=== PATIENT | female | born 1950 | race Caucasian/White ===

== ENCOUNTER → 2016-10-16 | Outpatient (CLI) | payer MEDICARE, OTHER ==
[~2016-10-16] MED LIST: MULTIPLE VIT 10 ML IV ONE; MVI in SODIUM CHLORIDE 0.9% 1,010 ML ONE; ONDANSETRON HCL 4 MG/2 ML VIAL IV ONE; ONDANSETRON HCL 4 MG/2 ML VIAL ONE; SODIUM CHLORIDE 0.9% 500 ML IVB ONE
[2016-10-16 15:00] VITALS: BP 96/67
== END | disposition home or self-care (01) ==
LOC: Rad HDHVI 12:48
PROVIDERS: ATTEND Internal Medicine Cardiovascular Disease
DX: E86.0 Dehydration (principal); R11.2 Nausea with vomiting, unspecified; K56.69 Other intestinal obstruction
CPT/HCPCS: 74000; 96365; 96366; 96375; G0463; J2405; J3411; J3475; 96360; 96361

== ENCOUNTER → 2016-10-22 | Outpatient (CLI) | payer MEDICARE, OTHER ==
[~2016-10-22] MED LIST changes: +DIPH2.5T73 PO; +DOCU100T15 PO; +GABA250S2 PO; +IBUP800T24 PO; +LANS15CA21 PO; +LETR2.5T6 PO; +LEVO88TA4 PO; +LORA-655 PO; +MAGN500C PO; +METO-281 PO; +OXYB5TAB61 PO; +POTA10TA34 PO; +PRO10T PO; +TELM80TA PO; +VENL150C58 PO; +VENL75CA78 PO; +ZOLP10TA PO
[2016-10-22 11:30] VITALS: BP 131/92
== END | disposition home or self-care (01) ==
LOC: CHF HDHVI 09:04
PROVIDERS: ATTEND Internal Medicine Cardiovascular Disease
DX: I50.9 Heart failure, unspecified (principal); C50.911 Malignant neoplasm of unspecified site of right female breast; R53.83 Other fatigue; R11.10 Vomiting, unspecified; E86.0 Dehydration
CPT/HCPCS: 96365; 96366; 96375; G0463; J2405; J3411; J3475; 96360; 96361; 96374

== ENCOUNTER → 2016-10-24 | Outpatient (CLI) | payer MEDICARE, OTHER ==
[~2016-10-24] MED LIST changes: +CYANOCOBALAMIN (B-12) 1000 MCG/1 ML VIAL ONE; +MAGNESIUM SULF SDV 50% 4MEQ/ML-2 ML VIAL IV ONE; +MAGNESIUM SULFATE 1GM/100ML 100 ML IV ONE; +POTASSIUM CHL 10 Meq TABLET PO ONE; +POTASSIUM CHL 20 Meq TABLET PO ONE; -SODIUM CHLORIDE 0.9% 500 ML IVB ONE
[2016-10-24 14:45] VITALS: BP 119/70
== END | disposition home or self-care (01) ==
LOC: CHF HDHVI 11:34
PROVIDERS: ATTEND Internal Medicine Cardiovascular Disease
DX: I10 Essential (primary) hypertension (principal); C78.6 Secondary malignant neoplasm of retroperitoneum and peritoneum; E63.9 Nutritional deficiency, unspecified; E03.9 Hypothyroidism, unspecified; E87.1 Hypo-osmolality and hyponatremia; R53.83 Other fatigue; R53.1 Weakness
CPT/HCPCS: 96365; 96366; 96372; 96375; G0463; J2405; J3411; J3420; J3475; 96360; 96361

== ENCOUNTER → 2016-11-13 | Outpatient (CLI) | payer MEDICARE, OTHER ==
[~2016-11-13] MED LIST changes: -CYANOCOBALAMIN (B-12) 1000 MCG/1 ML VIAL ONE; -MAGNESIUM SULF SDV 50% 4MEQ/ML-2 ML VIAL IV ONE; -MAGNESIUM SULFATE 1GM/100ML 100 ML IV ONE; -MULTIPLE VIT 10 ML IV ONE; -MVI in SODIUM CHLORIDE 0.9% 1,010 ML ONE; -ONDANSETRON HCL 4 MG/2 ML VIAL IV ONE; -ONDANSETRON HCL 4 MG/2 ML VIAL ONE; -POTASSIUM CHL 10 Meq TABLET PO ONE; -POTASSIUM CHL 20 Meq TABLET PO ONE
[2016-11-13 12:28] LABS: Basophils # (auto) 0 uL; Basophils % (auto) 0.3 % (0.0-2.0); DEFINITIVE Y; Eosinophils # (auto) 0 uL; Eosinophils % (auto) 0.4 % (0.0-7.0); Hematocrit 33.1 % (36.0-46.0); Hemoglobin 10.9 g/dL (12.2-16.2); Lymphocytes # (auto) 1.2 uL; Lymphocytes % (auto) 14.6 % (10.0-50.0); Mean Corpuscular Hemoglobin 29.8 pg (28.0-32.0); Mean Corpuscular Volume 90.2 fL (80.0-100.0); Mean Platelet Volume 7.1 fL (7.4-10.4); Monocytes # (auto) 0.4 uL; Monocytes % (auto) 5.3 % (0.0-12.0); Neutrophils # (auto) 6.6 uL; Neutrophils % (auto) 79.4 % (37.0-80.0); Red Cell Distribution Width 15.6 % (11.6-16.0); White Blood Cell 8.4 10^3/uL (4.4-10.8)
[2016-11-13 12:55] LABS: Albumin 3.3 g/dL (3.4-5.0); Alkaline Phosphatase 81 U/L (45-117); Anion Gap 9 (5-15); Aspartate Aminotransferase 16 U/L (15-37); BUN/Creatinine Ratio 23.5; Bilirubin, Direct < 0.1 mg/dL (0-0.2); Bilirubin, Total 0.2 mg/dL (0.2-1.0); Blood Urea Nitrogen 16 mg/dL (7-18); Calcium 9.3 mg/dL (8.5-10.1); Carbon Dioxide 21 mmol/L (21-32); Chloride 101 mmol/L (98-107); GFR African American 111 mL/min; GFR Non-African American 91 mL/min; Glucose 109 mg/dL (74-106); Potassium 4.7 mmol/L (3.5-5.1); Sodium 131 mmol/L (136-145); Total Protein 7.2 g/dL (6.4-8.2)
[2016-11-13 14:43] LABS: Platelet Count (auto) 889 10^3/uL (140-450); Platelet Estimate Markedly Increased
== END | disposition home or self-care (01) ==
LOC: Rad HDHVI 10:50
PROVIDERS: ATTEND Internal Medicine Cardiovascular Disease
DX: I10 Essential (primary) hypertension (principal); K74.1 Hepatic sclerosis; D64.9 Anemia, unspecified
CPT/HCPCS: 36415; 71020; 80048; 80076; 85025

== ENCOUNTER → 2016-11-19 | Outpatient (CLI) | payer MEDICARE, OTHER ==
[~2016-11-19] MED LIST changes: +CYANOCOBALAMIN (B-12) 1000 MCG/1 ML VIAL IM ONE; +CYANOCOBALAMIN (B-12) 1000 MCG/1 ML VIAL ONE; +MULTIPLE VIT 10 ML IV ONE; +MVI in SODIUM CHLORIDE 0.9% 1,010 ML ONE; +SODIUM CHLORIDE 0.9% 1,000 ML IVB ONE
[2016-11-19 13:30] VITALS: BP 139/72
== END | disposition home or self-care (01) ==
LOC: CHF HDHVI 10:27
PROVIDERS: ATTEND Internal Medicine Cardiovascular Disease
DX: E86.0 Dehydration (principal); C80.1 Malignant (primary) neoplasm, unspecified; D64.9 Anemia, unspecified
CPT/HCPCS: 96365; 96366; 96372; G0463; J1642; J3411; J3420; J3475

== ENCOUNTER → 2016-11-27 | Outpatient (CLI) | payer MEDICARE, OTHER ==
[~2016-11-27] MED LIST changes: -CYANOCOBALAMIN (B-12) 1000 MCG/1 ML VIAL IM ONE; -CYANOCOBALAMIN (B-12) 1000 MCG/1 ML VIAL ONE; -MULTIPLE VIT 10 ML IV ONE; -MVI in SODIUM CHLORIDE 0.9% 1,010 ML ONE; -SODIUM CHLORIDE 0.9% 1,000 ML IVB ONE
[2016-11-27 10:00] VITALS: BP 147/78
[2016-11-27 10:20] VITALS: BP 134/73
== END | disposition home or self-care (01) ==
LOC: CHF HDHVI 10:05
PROVIDERS: ATTEND Internal Medicine Cardiovascular Disease
DX: C76.2 Malignant neoplasm of abdomen (principal); D64.9 Anemia, unspecified; R53.83 Other fatigue
CPT/HCPCS: G0463

== ENCOUNTER → 2017-06-06 | Outpatient (CLI) | payer MEDICARE, OTHER ==
[~2017-06-06] MED LIST changes: +CYANOCOBALAMIN (B-12) 1000 MCG/1 ML VIAL ONE; +KETOROLAC TROMETH 60MG/2ML VIAL IM ONE; +MVI in SODIUM CHLORIDE 0.9% 1,010 ML ONE; +ONDANSETRON HCL 4 MG/2 ML VIAL ONE
[2017-06-06 12:33] LABS: Platelet Count (auto) 221 10^3/uL (140-450)
[2017-06-06 12:36] LABS: Hematocrit 40.4 % (36.0-46.0); Hemoglobin 13.4 g/dL (12.2-16.2); Mean Corpuscular Hemoglobin 33.6 pg (28.0-32.0); Mean Corpuscular Hgb Conc. 33.2 g/dL (32.0-36.0); Mean Corpuscular Volume 100.9 fL (80.0-100.0); Red Cell Distribution Width 13.5 % (11.8-14.3); White Blood Cell 11.5 10^3/uL (4.4-10.8)
[2017-06-06 12:59] LABS: BUN/Creatinine Ratio 26.5; Calcium 9.2 mg/dL (8.5-10.1); Magnesium 2.2 mg/dL (1.6-2.6); Potassium 3.8 mmol/L (3.5-5.1)
[2017-06-06 13:04] LABS: Basophils % (manual) 0 (0.0-2.0); Blast Cells 0; Metamyelocytes % 0; Myelocytes % 0; Promyelocytes % 0; Reactive Lymphocytes 0
[2017-06-06 14:21] LABS: Band Neutrophils % (manual) 31; Eosinophils % (manual) 2 (0-7); Lymphocytes % (manual) 7 (10.0-50.0); Monocytes % (manual) 5 (0-12)
[2017-06-06 15:15] VITALS: BP 122/72
== END | disposition home or self-care (01) ==
LOC: CHF HDHVI 11:13
PROVIDERS: ATTEND Internal Medicine Cardiovascular Disease
DX: E83.42 Hypomagnesemia (principal); I10 Essential (primary) hypertension; D64.9 Anemia, unspecified; K21.9 Gastro-esophageal reflux disease without esophagitis; C18.9 Malignant neoplasm of colon, unspecified; R07.9 Chest pain, unspecified
CPT/HCPCS: 36415; 80048; 83735; 85007; 85027; 96365; 96366; 96372; 96374; 96375; G0463; J1885; J2405

== ENCOUNTER → 2017-06-09 | Outpatient (CLI) | payer MEDICARE, OTHER ==
[~2017-06-09] MED LIST changes: -CYANOCOBALAMIN (B-12) 1000 MCG/1 ML VIAL ONE; -KETOROLAC TROMETH 60MG/2ML VIAL IM ONE; +MVI in SODIUM CHLORIDE 0.9% 1,000 ML IVB ONE; +ONDANSETRON HCL 4 MG/2 ML VIAL IV ONE; +PROMETHAZINE HCL 25 MG/ML 1ML IM ONE; +PROMETHAZINE HCL 25 MG/ML 1ML IV ONE; +PROMETHAZINE HCL 25 MG/ML 1ML ONE
[2017-06-09 13:35] VITALS: BP 130/73
[2017-06-09 16:18] LABS: Basophils # (auto) 0 uL; Basophils % (auto) 0.4 % (0.0-2.0); Eosinophils # (auto) 0.1 uL; Hemoglobin 12.6 g/dL (12.2-16.2); Neutrophils # (auto) 4.6 uL; Nucleated Red Blood Cells % 0.1 %
[2017-06-09 16:21] LABS: Eosinophils % (auto) 1.8 % (0.0-7.0); Hematocrit 37.6 % (36.0-46.0); Lymphocytes # (auto) 0.8 uL; Lymphocytes % (auto) 11.9 % (10.0-50.0); Mean Corpuscular Hemoglobin 33.5 pg (28.0-32.0); Mean Corpuscular Hgb Conc. 33.5 g/dL (32.0-36.0); Mean Corpuscular Volume 100.2 fL (80.0-100.0); Monocytes % (auto) 14.8 % (0.0-12.0); Neutrophils % (auto) 71.1 % (37.0-80.0); Platelet Count (auto) 301 10^3/uL (140-450); Red Blood Cells 3.76 10^6/uL (4.0-5.20); Red Cell Distribution Width 12.9 % (11.8-14.3); White Blood Cell 6.4 10^3/uL (4.4-10.8)
[2017-06-09 16:37] LABS: Potassium 3.8 mmol/L (3.5-5.1)
[2017-06-09 17:00] VITALS: BP 150/77
== END | disposition home or self-care (01) ==
LOC: CHF HDHVI 13:12
PROVIDERS: ATTEND Internal Medicine Cardiovascular Disease
DX: E87.5 Hyperkalemia (principal); E86.0 Dehydration; C20 Malignant neoplasm of rectum; R94.4 Abnormal results of kidney function studies; D64.9 Anemia, unspecified
CPT/HCPCS: 36415; 82565; 84132; 84295; 84520; 85025; 96365; 96366; 96372; 96375; G0463; J2405; J2550; J3411; J3475; 96374

== ENCOUNTER → 2017-06-30 | Outpatient (CLI) | payer MEDICARE, OTHER ==
[~2017-06-30] MED LIST changes: -PROMETHAZINE HCL 25 MG/ML 1ML IM ONE
[2017-06-30 16:10] VITALS: BP 139/76
[2017-06-30 16:27] LABS: Basophils # (auto) 0 uL; Basophils % (auto) 0.4 % (0.0-2.0); Eosinophils # (auto) 0.2 uL; Eosinophils % (auto) 1.6 % (0.0-7.0); Hematocrit 40.3 % (36.0-46.0); Hemoglobin 13.9 g/dL (12.2-16.2); Lymphocytes % (auto) 10.2 % (10.0-50.0); Mean Corpuscular Hemoglobin 33.5 pg (28.0-32.0); Mean Corpuscular Hgb Conc. 34.6 g/dL (32.0-36.0); Monocytes # (auto) 0.6 uL; Monocytes % (auto) 6.1 % (0.0-12.0); Neutrophils # (auto) 8.1 uL; Neutrophils % (auto) 81.7 % (37.0-80.0); Nucleated Red Blood Cells % 0.1 %; Platelet Count (auto) 325 10^3/uL (140-450); Red Blood Cells 4.16 10^6/uL (4.0-5.20); Red Cell Distribution Width 12.7 % (11.8-14.3); White Blood Cell 9.9 10^3/uL (4.4-10.8)
[2017-06-30 16:43] LABS: BUN/Creatinine Ratio 15.7; Calcium 9.6 mg/dL (8.5-10.1); Potassium 4.1 mmol/L (3.5-5.1)
== END | disposition home or self-care (01) ==
LOC: CHF HDHVI 12:34
PROVIDERS: ATTEND Internal Medicine Cardiovascular Disease
DX: E83.42 Hypomagnesemia (principal); I10 Essential (primary) hypertension; D64.9 Anemia, unspecified; E55.9 Vitamin D deficiency, unspecified; C50.919 Malignant neoplasm of unspecified site of unspecified female breast; E86.0 Dehydration
CPT/HCPCS: 36415; 80048; 82306; 83735; 85025; 96365; 96366; 96375; G0463; J2405; J2550; J3411; J3475

== ENCOUNTER → 2018-02-09 | Outpatient (CLI) | payer MEDICARE, BC ==
[~2018-02-09] MED LIST changes: -ONDANSETRON HCL 4 MG/2 ML VIAL IV ONE; -ONDANSETRON HCL 4 MG/2 ML VIAL ONE; -POTA10TA34 PO; +POTA1TAB61 PO; +PROMETHAZINE HCL 25 MG/ML 1ML IM ONE
[2018-02-09 13:07] LABS: Basophils # (auto) 0 uL; Basophils % (auto) 0.4 % (0.0-2.0); Eosinophils # (auto) 0 uL; Eosinophils % (auto) 0.5 % (0.0-7.0); Hematocrit 38.4 % (36.0-46.0); Mean Corpuscular Hgb Conc. 33.9 g/dL (32.0-36.0); Mean Corpuscular Volume 91.7 fL (80.0-100.0); Monocytes # (auto) 0.5 uL; Monocytes % (auto) 7.6 % (0.0-12.0); Neutrophils # (auto) 5.2 uL; Neutrophils % (auto) 76.5 % (37.0-80.0); Nucleated Red Blood Cells % 0.1 %; Platelet Count (auto) 277 10^3/uL (140-450); Red Blood Cells 4.19 10^6/uL (4.0-5.20); Red Cell Distribution Width 17.7 % (11.8-14.3); White Blood Cell 6.8 10^3/uL (4.4-10.8)
[2018-02-09 13:18] LABS: Calcium 9.3 mg/dL (8.5-10.1); Magnesium 2.2 mg/dL (1.6-2.6); Potassium 3.4 mmol/L (3.5-5.1)
[2018-02-09 16:10] VITALS: BP 158/88
== END | disposition home or self-care (01) ==
LOC: CHF HDHVI 11:54
PROVIDERS: ATTEND Internal Medicine Cardiovascular Disease
DX: C76.2 Malignant neoplasm of abdomen (principal); C79.89 Secondary malignant neoplasm of other specified sites; E86.0 Dehydration; R11.2 Nausea with vomiting, unspecified; R53.1 Weakness; I10 Essential (primary) hypertension
CPT/HCPCS: 36415; 80048; 82962; 83735; 85025; 96365; 96366; 96372; 96375; G0463; J1642; J2550; J3411; J3475

== ENCOUNTER → 2018-02-12 | Outpatient (CLI) | payer MEDICARE, BC ==
[~2018-02-12] VITALS: Ht 165.1 cm; Wt 59.0 kg
[2018-02-12 16:15] VITALS: BP 167/82
== END | disposition home or self-care (01) ==
LOC: CHF HDHVI 11:25
PROVIDERS: ATTEND Internal Medicine Cardiovascular Disease
DX: C18.9 Malignant neoplasm of colon, unspecified (principal); R53.81 Other malaise; R53.83 Other fatigue; N39.0 Urinary tract infection, site not specified; E87.6 Hypokalemia; E86.9 Volume depletion, unspecified; D64.9 Anemia, unspecified; I10 Essential (primary) hypertension; I25.10 Atherosclerotic heart disease of native coronary artery without angina pectoris; K21.9 Gastro-esophageal reflux disease without esophagitis; E78.5 Hyperlipidemia, unspecified; Z87.891 Personal history of nicotine dependence; Z79.899 Other long term (current) drug therapy
CPT/HCPCS: 96365; 96366; 96372; 96375; G0463; J1642; J2550; J3411; J3475

== ENCOUNTER 2018-02-18 15:26 | Inpatient (IN) | payer MEDICARE, OTHER ==
[~2018-02-18] VITALS: Ht 165.1 cm; Wt 60.8 kg
[~2018-02-18 15:26] MED LIST changes: -MVI in SODIUM CHLORIDE 0.9% 1,000 ML IVB ONE; -MVI in SODIUM CHLORIDE 0.9% 1,010 ML ONE; -PROMETHAZINE HCL 25 MG/ML 1ML IM ONE; -PROMETHAZINE HCL 25 MG/ML 1ML IV ONE; -PROMETHAZINE HCL 25 MG/ML 1ML ONE
[2018-02-18] MEDS ORDERED: D5W/SOD CHL 0.45% 1,000 ML IV SCH (17:30)
[2018-02-18] MEDS ORDERED: PROMETHAZINE HCL 25 MG/ML 1ML IV PRN (17:30)
[2018-02-18] MEDS ORDERED: TPN PER PHARMACY 0 ML IV SCH (17:30)
[2018-02-18 19:39] LABS: Magnesium 2.1 mg/dL (1.6-2.6); Phosphorus 2.4 mg/dL (2.5-4.90)
[2018-02-18] MEDS: MORPHINE SULFATE 10 MG/5 ML ORAL SOLN PO PRN (20:33)
[2018-02-18 22:00] VITALS: BP 145/80
[2018-02-18] MEDS ORDERED: AMINO ACID INFUSION IN D10W 1,000 ML IV NR (22:00)
[2018-02-18] MEDS ORDERED: PROCHLORPERAZINE EDISYLATE 5 MG/ML 2ML VIAL IV ONE (22:00)
[2018-02-18] MEDS ORDERED: DEXTROSE (50%) 50ML SYRG IV SCH (22:15)
[2018-02-18] MEDS: D5W/SOD CHL 0.45% 1,000 ML IV SCH (23:00)
[2018-02-18] MEDS: LORazepam 0.5 MG TAB PO PRN (23:13)
[2018-02-18] MEDS: POTASSIUM CHL 10 Meq TABLET PO SCH (23:41)
[2018-02-18] MEDS: POTASSIUM CHL 20MEQ/100ML 100 ML IV SCH (23:53)
[2018-02-18] MEDS: LORazepam 0.5 MG TAB PO SCH (23:58)
[2018-02-19] MEDS: ACCU-CHEK COMFORT CURVE STRIP VI SCH ×5 (01:30→23:49)
[2018-02-19] MEDS: InsuLIN REG 1unit/0.01ml Soln (100units/ml) SC SCH ×5 (01:30→23:49)
[2018-02-19] MEDS: POTASSIUM CHL 20MEQ/100ML 100 ML IV SCH ×4 (01:40→13:50)
[2018-02-19 05:15] VITALS: BP 151/72
[2018-02-19] MEDS: MORPHINE SULFATE 10 MG/5 ML ORAL SOLN PO PRN ×3 (06:20→23:47)
[2018-02-19 06:30] LABS: Albumin 2.3 g/dL (3.4-5.0); BUN/Creatinine Ratio 43.1; Bilirubin, Total 0.6 mg/dL (0.2-1.0); Calcium 8.1 mg/dL (8.5-10.1); Magnesium 2.1 mg/dL (1.6-2.6); Phosphorus 3.1 mg/dL (2.5-4.90); Total Protein 6.3 g/dL (6.4-8.2)
[2018-02-19 08:00] VITALS: BP 128/75
[2018-02-19 09:00] VITALS: BP 128/75
[2018-02-19] MEDS: POTASSIUM CHL 10 Meq TABLET PO SCH ×3 (09:12→21:59)
[2018-02-19] MEDS: LORazepam 2MG/ML-1ML VIAL IV PRN ×2 (09:13→09:26)
[2018-02-19] MEDS: D5W/SOD CHL 0.45% 1,000 ML IV SCH ×2 (12:21→23:49)
[2018-02-19 13:00] VITALS: BP 130/72
[2018-02-19] MEDS ORDERED: METOCLOPRAMIDE HCL 5MG/ml INJ 2ml VIAL IV PRN (14:00)
[2018-02-19] MEDS ORDERED: METOCLOPRAMIDE HCL 5MG/ml INJ 2ml VIAL IV SCH (14:00)
[2018-02-19 17:00] VITALS: BP 133/75
[2018-02-19] MEDS: PROCHLORPERAZINE EDISYLATE 5 MG/ML 2ML VIAL IV PRN (18:44)
[2018-02-19] MEDS: FAMOTIDINE (10MG/ML) 2ML VL IV SCH (18:44)
[2018-02-19] MEDS ORDERED: TPN PER PHARMACY IV NR ×16 (20:00)
[2018-02-19] MEDS: LORazepam 0.5 MG TAB PO SCH (21:59)
[2018-02-19 22:00] VITALS: BP 126/78
[2018-02-20] MEDS: PROCHLORPERAZINE EDISYLATE 5 MG/ML 2ML VIAL IV PRN ×4 (03:54→20:27)
[2018-02-20 05:00] VITALS: BP 132/69
[2018-02-20] MEDS: InsuLIN REG 1unit/0.01ml Soln (100units/ml) SC SCH ×4 (06:00→23:49)
[2018-02-20] MEDS: ACCU-CHEK COMFORT CURVE STRIP VI SCH ×4 (06:00→23:49)
[2018-02-20] MEDS: MORPHINE SULFATE 10 MG/5 ML ORAL SOLN PO PRN ×3 (06:12→21:28)
[2018-02-20] MEDS: LEVOTHYROXINE SODIUM 88 MCG TAB PO SCH (06:14)
[2018-02-20 07:27] LABS: Albumin 2.3 g/dL (3.4-5.0); BUN/Creatinine Ratio 26.7; Bilirubin, Total 0.5 mg/dL (0.2-1.0); Calcium 8.4 mg/dL (8.5-10.1); Total Protein 6.5 g/dL (6.4-8.2)
[2018-02-20 07:28] LABS: Phosphorus 3.8 mg/dL (2.5-4.90)
[2018-02-20 07:42] LABS: Potassium 2.7 mmol/L (3.5-5.1)
[2018-02-20] MEDS: POTASSIUM CHL 20MEQ/100ML 100 ML IV SCH ×6 (09:15→19:15)
[2018-02-20] MEDS: D5W/SOD CHL 0.45% 1,000 ML IV SCH (09:30)
[2018-02-20 09:50] VITALS: BP 133/72
[2018-02-20] MEDS: POTASSIUM CHL 10 Meq TABLET PO SCH ×2 (10:00→21:30)
[2018-02-20] MEDS: FAMOTIDINE (10MG/ML) 2ML VL IV SCH ×2 (10:14→21:30)
[2018-02-20 12:37] VITALS: BP 117/75
[2018-02-20 13:00] VITALS: BP 129/74
[2018-02-20 16:36] VITALS: BP 119/75
[2018-02-20] MEDS ORDERED: fentaNYL 100MCG/HR 100 MCG/HR PAT TD SCH (17:00)
[2018-02-20] MEDS: LORazepam 2MG/ML-1ML VIAL IV PRN (19:16)
[2018-02-20] MEDS ORDERED: TPN PER PHARMACY IV NR ×9 (20:00)
[2018-02-20 22:00] VITALS: BP 127/72
[2018-02-20] MEDS: LORazepam 0.5 MG TAB PO PRN (23:18)
[2018-02-21] MEDS: PROCHLORPERAZINE EDISYLATE 5 MG/ML 2ML VIAL IV PRN ×4 (00:45→20:30)
[2018-02-21] MEDS: D5W/SOD CHL 0.45% 1,000 ML IV SCH ×2 (01:57→18:12)
[2018-02-21] MEDS: MORPHINE SULFATE 10 MG/5 ML ORAL SOLN PO PRN ×5 (03:41→22:27)
[2018-02-21 05:01] VITALS: BP 123/83
[2018-02-21] MEDS: ACCU-CHEK COMFORT CURVE STRIP VI SCH ×3 (06:17→18:11)
[2018-02-21] MEDS: InsuLIN REG 1unit/0.01ml Soln (100units/ml) SC SCH ×3 (06:17→18:00)
[2018-02-21] MEDS: LEVOTHYROXINE SODIUM 88 MCG TAB PO SCH (06:18)
[2018-02-21 06:39] LABS: Albumin 2.3 g/dL (3.4-5.0); BUN/Creatinine Ratio 19.3; Bilirubin, Total 0.4 mg/dL (0.2-1.0); Calcium 8.7 mg/dL (8.5-10.1); Magnesium 2.6 mg/dL (1.6-2.6); Phosphorus 3.3 mg/dL (2.5-4.90); Potassium 3.6 mmol/L (3.5-5.1); Pre Albumin 34.7 mg/dL (20.0-40.0); Total Protein 6.7 g/dL (6.4-8.2)
[2018-02-21 09:00] VITALS: BP 113/78
[2018-02-21] MEDS: LORazepam 2MG/ML-1ML VIAL IV PRN ×2 (09:16→15:09)
[2018-02-21] MEDS: FAMOTIDINE (10MG/ML) 2ML VL IV SCH ×2 (09:53→21:47)
[2018-02-21] MEDS: POTASSIUM CHL 10 Meq TABLET PO SCH ×2 (09:53→21:47)
[2018-02-21 17:00] VITALS: BP 135/80
[2018-02-21] MEDS ORDERED: TPN PER PHARMACY IV NR ×8 (20:00)
[2018-02-21 21:49] VITALS: BP 136/85
[2018-02-22] MEDS: PROCHLORPERAZINE EDISYLATE 5 MG/ML 2ML VIAL IV PRN ×3 (02:00→20:47)
[2018-02-22] MEDS: MORPHINE SULFATE 10 MG/5 ML ORAL SOLN PO PRN ×6 (03:30→23:26)
[2018-02-22 05:46] VITALS: BP 144/77
[2018-02-22] MEDS: ACCU-CHEK COMFORT CURVE STRIP VI SCH ×5 (06:00→23:28)
[2018-02-22] MEDS: InsuLIN REG 1unit/0.01ml Soln (100units/ml) SC SCH ×5 (06:00→23:27)
[2018-02-22] MEDS: LEVOTHYROXINE SODIUM 88 MCG TAB PO SCH (06:17)
[2018-02-22 07:35] LABS: Bilirubin, Total 0.4 mg/dL (0.2-1.0); Calcium 8.4 mg/dL (8.5-10.1); Magnesium 2.2 mg/dL (1.6-2.6); Phosphorus 3.3 mg/dL (2.5-4.90); Potassium 3.3 mmol/L (3.5-5.1); Total Protein 6.3 g/dL (6.4-8.2)
[2018-02-22] MEDS: POTASSIUM CHL 10 Meq TABLET PO SCH (08:59)
[2018-02-22 09:00] VITALS: BP 139/74
[2018-02-22] MEDS: FAMOTIDINE (10MG/ML) 2ML VL IV SCH ×2 (09:01→20:48)
[2018-02-22] MEDS ORDERED: POTASSIUM CHL 20MEQ/100ML 100 ML IV ONE (09:45)
[2018-02-22] MEDS: D5W/SOD CHL 0.45% 1,000 ML IV SCH (11:42)
[2018-02-22 13:00] VITALS: BP 103/71
[2018-02-22] MEDS: LORazepam 2MG/ML-1ML VIAL IV PRN (14:08)
[2018-02-22 17:00] VITALS: BP 121/69
[2018-02-22] MEDS ORDERED: TPN PER PHARMACY IV NR ×20 (20:00)
[2018-02-22] MEDS: LORazepam 0.5 MG TAB PO PRN (21:14)
[2018-02-22 22:00] VITALS: BP 129/70
[2018-02-23] MEDS: PROCHLORPERAZINE EDISYLATE 5 MG/ML 2ML VIAL IV PRN ×3 (02:28→12:43)
[2018-02-23] MEDS: MORPHINE SULFATE 10 MG/5 ML ORAL SOLN PO PRN ×3 (03:55→14:45)
[2018-02-23] MEDS: LORazepam 2MG/ML-1ML VIAL IV PRN ×2 (04:06→12:22)
[2018-02-23] MEDS: InsuLIN REG 1unit/0.01ml Soln (100units/ml) SC SCH ×3 (04:48→18:00)
[2018-02-23] MEDS: ACCU-CHEK COMFORT CURVE STRIP VI SCH ×3 (04:49→18:00)
[2018-02-23 05:18] VITALS: BP 105/65
[2018-02-23] MEDS: D5W/SOD CHL 0.45% 1,000 ML IV SCH (06:43)
[2018-02-23] MEDS: LEVOTHYROXINE SODIUM 88 MCG TAB PO SCH (06:44)
[2018-02-23 07:30] LABS: Albumin 2.2 g/dL (3.4-5.0); BUN/Creatinine Ratio 20.2; Bilirubin, Total 0.6 mg/dL (0.2-1.0); Calcium 8.6 mg/dL (8.5-10.1); Magnesium 2.3 mg/dL (1.6-2.6); Phosphorus 3.3 mg/dL (2.5-4.90); Potassium 3.4 mmol/L (3.5-5.1); Total Protein 6.6 g/dL (6.4-8.2)
[2018-02-23] MEDS: FAMOTIDINE (10MG/ML) 2ML VL IV SCH (08:43)
[2018-02-23 09:00] VITALS: BP 115/62
[2018-02-23] MEDS ORDERED: POTASSIUM CHL 20MEQ/100ML 100 ML IV ONE (10:30)
[2018-02-23 13:00] VITALS: BP 122/82
[2018-02-23 16:19] VITALS: BP 122/82
[2018-02-23 17:12] VITALS: BP 138/72
[2018-02-23] MEDS ORDERED: [UNRECOGNIZED DRUG - OTHER] IV NR ×10 (20:00)
[2018-02-23] MEDS ORDERED: SODIUM PHOSPHATES IV NR ×10 (20:00)
[2018-02-23] MEDS ORDERED: SODIUM CHLORIDE IV NR ×10 (20:00)
[2018-02-23] MEDS ORDERED: FAT EMULSION IV NR ×10 (20:00)
== END 2018-02-23 18:17 | disposition hospice, home (50) | DRG 640 ==
LOC: TELE-WESTW 16:43
PROVIDERS: ADMIT Internal Medicine Cardiovascular Disease; ATTEND Internal Medicine Cardiovascular Disease
PROC: 02HV33Z Insertion of Infusion Device into Superior Vena Cava, Percutaneous Approach (ICD-10-PCS; principal; 2018-02-18)
DX: E87.0 Hyperosmolality and hypernatremia (principal); E43 Unspecified severe protein-calorie malnutrition; C56.9 Malignant neoplasm of unspecified ovary; R64 Cachexia; E87.6 Hypokalemia; E86.9 Volume depletion, unspecified; K21.9 Gastro-esophageal reflux disease without esophagitis; I10 Essential (primary) hypertension; E78.5 Hyperlipidemia, unspecified; I25.10 Atherosclerotic heart disease of native coronary artery without angina pectoris; Z51.5 Encounter for palliative care; Z87.891 Personal history of nicotine dependence; Z68.22 Body mass index [BMI] 22.0-22.9, adult; Z79.899 Other long term (current) drug therapy
CPT/HCPCS: 36415; 71045; 80053; 82040; 82962; 83735; 83935; 84100; 84478; 85025; 96365; 96366; 96367; 96372; 96375; G0463; J1642; J1815; J3480; J3490; J7131

== ENCOUNTER → 2018-02-25 | Outpatient (CLI) | payer MEDICARE, BC ==
[~2018-02-25] MED LIST changes: -DIPH2.5T73 PO; -DOCU100T15 PO; -GABA250S2 PO; -IBUP800T24 PO; -LANS15CA21 PO; -LETR2.5T6 PO; -MAGN500C PO; -METO-281 PO; -OXYB5TAB61 PO; -POTA1TAB61 PO; -PRO10T PO; +PROMETHAZINE HCL 25 MG/ML 1ML IM ONE; +PROMETHAZINE HCL 25 MG/ML 1ML IV ONE; +PROMETHAZINE HCL 25 MG/ML 1ML ONE; -TELM80TA PO; -VENL150C58 PO; -VENL75CA78 PO; -ZOLP10TA PO
[2018-02-25 13:10] VITALS: BP 131/78
[2018-02-25 15:20] VITALS: BP 128/82
== END | disposition home or self-care (01) ==
LOC: CHF HDHVI 13:16
PROVIDERS: ATTEND Internal Medicine Cardiovascular Disease
DX: C56.9 Malignant neoplasm of unspecified ovary (principal); C79.9 Secondary malignant neoplasm of unspecified site; R11.2 Nausea with vomiting, unspecified; I10 Essential (primary) hypertension; I25.10 Atherosclerotic heart disease of native coronary artery without angina pectoris; K21.9 Gastro-esophageal reflux disease without esophagitis; E78.5 Hyperlipidemia, unspecified; Z68.22 Body mass index [BMI] 22.0-22.9, adult; Z87.891 Personal history of nicotine dependence
CPT/HCPCS: 96372; 96374; G0463; J1642; J2550

== ENCOUNTER 2018-03-12 17:50 | Inpatient (IN) | payer MEDICARE, OTHER ==
[~2018-03-12] VITALS: Ht 165.1 cm; Wt 59.4 kg
[~2018-03-12 17:50] MED LIST changes: -PROMETHAZINE HCL 25 MG/ML 1ML IM ONE; -PROMETHAZINE HCL 25 MG/ML 1ML IV ONE; -PROMETHAZINE HCL 25 MG/ML 1ML ONE
[2018-03-12] MEDS ORDERED: SODIUM CHLORIDE 0.9% 1,000 ML IV SCH ×2 (18:45→20:00)
[2018-03-12] MEDS ORDERED: TPN PER PHARMACY 0 ML IV SCH (18:45)
[2018-03-12] MEDS: POTASSIUM CHL 20MEQ/100ML 100 ML IV SCH ×3 (18:45→22:55)
[2018-03-12 20:00] VITALS: BP 114/65
[2018-03-12] MEDS ORDERED: NITROGLYCERIN 0.4 MG SL TAB SL PRN (20:00)
[2018-03-12] MEDS ORDERED: MORPHINE SULFATE 4 MG/ML SYR/VIAL IV PRN (20:00)
[2018-03-12] MEDS ORDERED: AMINO ACID INFUSION IN D10W 1,000 ML IV NR (21:30)
[2018-03-12] MEDS ORDERED: DEXTROSE (50%) 50ML SYRG IV SCH (21:30)
[2018-03-12 21:40] VITALS: BP 116/73
[2018-03-12] MEDS: FAMOTIDINE (10MG/ML) 2ML VL IV SCH (21:41)
[2018-03-12] MEDS: PROCHLORPERAZINE EDISYLATE 5 MG/ML 2ML VIAL IV PRN (22:12)
[2018-03-12] MEDS: SODIUM CHLORIDE 0.9% 1,000 ML IV SCH (22:30)
[2018-03-12] MEDS: InsuLIN REG 1unit/0.01ml Soln (100units/ml) SC SCH (23:54)
[2018-03-12] MEDS: ACCU-CHEK COMFORT CURVE STRIP VI SCH (23:54)
[2018-03-13] MEDS: POTASSIUM CHL 20MEQ/100ML 100 ML IV SCH ×3 (01:12→12:25)
[2018-03-13] MEDS: LORazepam 2MG/ML-1ML VIAL IV PRN ×3 (03:57→21:46)
[2018-03-13 05:28] VITALS: BP 111/59
[2018-03-13] MEDS: InsuLIN REG 1unit/0.01ml Soln (100units/ml) SC SCH ×3 (06:00→18:00)
[2018-03-13] MEDS: ACCU-CHEK COMFORT CURVE STRIP VI SCH ×3 (06:20→18:25)
[2018-03-13 06:32] LABS: Basophils # (auto) 0 uL; Basophils % (auto) 0.7 % (0.0-2.0); Eosinophils # (auto) 0 uL; Eosinophils % (auto) 0.8 % (0.0-7.0); Hematocrit 34.1 % (36.0-46.0); Hemoglobin 11.5 g/dL (12.2-16.2); Lymphocytes # (auto) 1.4 uL; Lymphocytes % (auto) 25.2 % (10.0-50.0); Mean Corpuscular Hemoglobin 30.1 pg (28.0-32.0); Mean Corpuscular Hgb Conc. 33.7 g/dL (32.0-36.0); Mean Corpuscular Volume 89.1 fL (80.0-100.0); Monocytes # (auto) 0.6 uL; Neutrophils # (auto) 3.5 uL; Neutrophils % (auto) 62.3 % (37.0-80.0); Nucleated Red Blood Cells % 0.1 %; Platelet Count (auto) 289 10^3/uL (140-450); Red Blood Cells 3.83 10^6/uL (4.0-5.20); Red Cell Distribution Width 15.9 % (11.8-14.3); White Blood Cell 5.6 10^3/uL (4.4-10.8)
[2018-03-13 06:53] LABS: Albumin 2.1 g/dL (3.4-5.0); BUN/Creatinine Ratio 46.3; Potassium 3.1 mmol/L (3.5-5.1)
[2018-03-13 06:54] LABS: Magnesium 2.2 mg/dL (1.6-2.6)
[2018-03-13 06:55] LABS: Bilirubin, Total 0.5 mg/dL (0.2-1.0); Total Protein 6.4 g/dL (6.4-8.2)
[2018-03-13 06:57] LABS: Phosphorus 4.5 mg/dL (2.5-4.90)
[2018-03-13 08:26] LABS: Pre Albumin 31.5 mg/dL (20.0-40.0)
[2018-03-13] MEDS: PROCHLORPERAZINE EDISYLATE 5 MG/ML 2ML VIAL IV PRN ×2 (08:36→19:50)
[2018-03-13 08:38] VITALS: BP 123/69
[2018-03-13] MEDS: FAMOTIDINE (10MG/ML) 2ML VL IV SCH ×2 (09:33→21:28)
[2018-03-13 12:24] VITALS: BP 118/66
[2018-03-13] MEDS: SODIUM CHLORIDE 0.9% 1,000 ML IV SCH (15:10)
[2018-03-13 16:45] VITALS: BP 126/78
[2018-03-13] MEDS ORDERED: TPN PER PHARMACY IV NR ×7 (20:00)
[2018-03-13 22:17] VITALS: BP 121/67
[2018-03-14 05:00] VITALS: BP 127/64
[2018-03-14] MEDS: InsuLIN REG 1unit/0.01ml Soln (100units/ml) SC SCH ×5 (06:00→23:21)
[2018-03-14 06:19] LABS: Albumin 2.2 g/dL (3.4-5.0); BUN/Creatinine Ratio 36.1; Calcium 8.1 mg/dL (8.5-10.1); Magnesium 2.1 mg/dL (1.6-2.6)
[2018-03-14] MEDS: ACCU-CHEK COMFORT CURVE STRIP VI SCH ×4 (06:22→17:34)
[2018-03-14 06:27] LABS: Bilirubin, Total 0.5 mg/dL (0.2-1.0); Phosphorus 2.5 mg/dL (2.5-4.90); Total Protein 6.4 g/dL (6.4-8.2)
[2018-03-14 06:40] LABS: Potassium 2.9 mmol/L (3.5-5.1)
[2018-03-14] MEDS: SODIUM CHLORIDE 0.9% 1,000 ML IV SCH ×2 (07:50→12:19)
[2018-03-14 09:00] VITALS: BP 122/69
[2018-03-14] MEDS: LORazepam 2MG/ML-1ML VIAL IV PRN ×2 (09:18→20:30)
[2018-03-14] MEDS: FAMOTIDINE (10MG/ML) 2ML VL IV SCH ×2 (09:19→22:50)
[2018-03-14] MEDS ORDERED: HYDROmorphone HCL 2 MG/ML VL IV PRN (10:00)
[2018-03-14] MEDS: POTASSIUM CHL 20MEQ/100ML 100 ML IV SCH ×3 (10:10→14:22)
[2018-03-14 13:00] VITALS: BP 130/73
[2018-03-14] MEDS ORDERED: diphenhdrAMINE HCL 50 MG/1 ML VL IV PRN (14:15)
[2018-03-14] MEDS ORDERED: diphenhdrAMINE HCL 25 MG CAP PO PRN (14:30)
[2018-03-14 17:00] VITALS: BP 122/67
[2018-03-14] MEDS ORDERED: TPN PER PHARMACY IV NR ×9 (20:00)
[2018-03-14] MEDS: PROCHLORPERAZINE EDISYLATE 5 MG/ML 2ML VIAL IV PRN (20:30)
[2018-03-14 22:00] VITALS: BP 112/63
[2018-03-15 05:00] VITALS: BP 118/76
[2018-03-15] MEDS: ACCU-CHEK COMFORT CURVE STRIP VI SCH ×4 (05:53→18:53)
[2018-03-15] MEDS: InsuLIN REG 1unit/0.01ml Soln (100units/ml) SC SCH ×3 (05:53→18:00)
[2018-03-15 07:34] LABS: Albumin 2.1 g/dL (3.4-5.0); Calcium 8.1 mg/dL (8.5-10.1); Magnesium 2.2 mg/dL (1.6-2.6); Potassium 3.3 mmol/L (3.5-5.1)
[2018-03-15 07:38] LABS: BUN/Creatinine Ratio 27.6
[2018-03-15 07:40] LABS: Bilirubin, Total 0.5 mg/dL (0.2-1.0); Total Protein 6.4 g/dL (6.4-8.2)
[2018-03-15] MEDS: PROCHLORPERAZINE EDISYLATE 5 MG/ML 2ML VIAL IV PRN ×2 (07:57→16:10)
[2018-03-15 09:00] VITALS: BP 126/71
[2018-03-15] MEDS: FAMOTIDINE (10MG/ML) 2ML VL IV SCH ×2 (10:18→20:31)
[2018-03-15] MEDS: POTASSIUM CHL 20MEQ/100ML 100 ML IV SCH ×2 (11:36→14:21)
[2018-03-15 13:00] VITALS: BP 126/65
[2018-03-15] MEDS: MORPHINE SULFATE 4 MG/ML SYR/VIAL IV PRN (13:10)
[2018-03-15] MEDS ORDERED: POTASSIUM CHL 20MEQ/100ML 100 ML IV SCH (13:15)
[2018-03-15 17:00] VITALS: BP 130/80
[2018-03-15] MEDS: SODIUM CHLORIDE 0.9% 1,000 ML IV SCH (17:10)
[2018-03-15] MEDS: [UNRECOGNIZED DRUG - OTHER] IV NR ×10 (19:55)
[2018-03-15] MEDS: POTASSIUM CHLORIDE IV NR ×10 (19:55)
[2018-03-15] MEDS: FAT EMULSION IV NR ×10 (19:55)
[2018-03-15] MEDS: SODIUM CHLORIDE IV NR ×10 (19:55)
[2018-03-15] MEDS: LORazepam 2MG/ML-1ML VIAL IV PRN (20:39)
[2018-03-15 21:12] VITALS: BP 146/78
[2018-03-16] MEDS: PROCHLORPERAZINE EDISYLATE 5 MG/ML 2ML VIAL IV PRN ×4 (00:23→22:34)
[2018-03-16 05:15] VITALS: BP 124/79
[2018-03-16] MEDS: InsuLIN REG 1unit/0.01ml Soln (100units/ml) SC SCH ×4 (06:00→17:33)
[2018-03-16] MEDS: ACCU-CHEK COMFORT CURVE STRIP VI SCH ×4 (06:00→17:33)
[2018-03-16 07:02] LABS: Albumin 2.1 g/dL (3.4-5.0); BUN/Creatinine Ratio 26.5; Bilirubin, Total 0.4 mg/dL (0.2-1.0); Calcium 8.6 mg/dL (8.5-10.1); Magnesium 2.4 mg/dL (1.6-2.6); Phosphorus 3.8 mg/dL (2.5-4.90); Total Protein 6.5 g/dL (6.4-8.2)
[2018-03-16 09:10] VITALS: BP 114/69
[2018-03-16] MEDS: SODIUM CHLORIDE 0.9% 1,000 ML IV SCH (09:50)
[2018-03-16] MEDS: FAMOTIDINE (10MG/ML) 2ML VL IV SCH ×2 (10:05→20:54)
[2018-03-16] MEDS: MORPHINE SULFATE 4 MG/ML SYR/VIAL IV PRN (10:06)
[2018-03-16] MEDS: LORazepam 2MG/ML-1ML VIAL IV PRN ×2 (12:39→20:54)
[2018-03-16 13:00] VITALS: BP 127/72
[2018-03-16 16:38] VITALS: BP 133/67
[2018-03-16] MEDS ORDERED: LORazepam 2MG/ML-1ML VIAL IV ONE (17:00)
[2018-03-16] MEDS ORDERED: [UNRECOGNIZED DRUG - OTHER] IV NR ×11 (20:00)
[2018-03-16] MEDS ORDERED: FAT EMULSION IV NR ×11 (20:00)
[2018-03-16] MEDS ORDERED: SODIUM ACETATE IV NR ×11 (20:00)
[2018-03-16] MEDS ORDERED: SODIUM CHLORIDE IV NR ×11 (20:00)
[2018-03-16] MEDS: POTASSIUM CHLORIDE IV NR ×10 (20:19)
[2018-03-16] MEDS: FAT EMULSION IV NR ×10 (20:19)
[2018-03-16] MEDS: SODIUM CHLORIDE IV NR ×10 (20:19)
[2018-03-16] MEDS: [UNRECOGNIZED DRUG - OTHER] IV NR ×10 (20:19)
[2018-03-16 22:00] VITALS: BP 133/73
[2018-03-17] MEDS: SODIUM CHLORIDE 0.9% 1,000 ML IV SCH (01:39)
[2018-03-17] MEDS: LORazepam 2MG/ML-1ML VIAL IV PRN ×2 (03:07→09:08)
[2018-03-17] MEDS: PROCHLORPERAZINE EDISYLATE 5 MG/ML 2ML VIAL IV PRN ×2 (04:36→11:55)
[2018-03-17 05:00] VITALS: BP 124/72
[2018-03-17] MEDS: InsuLIN REG 1unit/0.01ml Soln (100units/ml) SC SCH ×3 (06:48→11:41)
[2018-03-17] MEDS: ACCU-CHEK COMFORT CURVE STRIP VI SCH ×3 (06:48→11:41)
[2018-03-17 08:00] VITALS: BP 112/71
[2018-03-17 08:27] LABS: Calcium 8.2 mg/dL (8.5-10.1); Potassium 4.2 mmol/L (3.5-5.1)
[2018-03-17 08:31] LABS: Albumin 2.1 g/dL (3.4-5.0); BUN/Creatinine Ratio 27.7; Magnesium 2.2 mg/dL (1.6-2.6)
[2018-03-17 08:34] LABS: Bilirubin, Total 0.4 mg/dL (0.2-1.0); Phosphorus 3.8 mg/dL (2.5-4.90); Total Protein 6.6 g/dL (6.4-8.2)
[2018-03-17 09:00] VITALS: BP 112/71
[2018-03-17] MEDS: FAMOTIDINE (10MG/ML) 2ML VL IV SCH (09:43)
[2018-03-17 12:28] VITALS: BP 126/78
[2018-03-17 13:00] VITALS: BP 126/78
[2018-03-17] MEDS ORDERED: FAT EMULSION IV NR ×11 (20:00)
[2018-03-17] MEDS ORDERED: [UNRECOGNIZED DRUG - OTHER] IV NR ×11 (20:00)
[2018-03-17] MEDS ORDERED: SODIUM CHLORIDE IV NR ×11 (20:00)
[2018-03-17] MEDS ORDERED: SODIUM ACETATE IV NR ×11 (20:00)
== END 2018-03-17 16:05 | disposition home health service (06) | DRG 682 ==
LOC: EAST 17:50
PROVIDERS: ADMIT Internal Medicine Cardiovascular Disease; ATTEND Internal Medicine Cardiovascular Disease
DX: N17.9 Acute kidney failure, unspecified (principal); E43 Unspecified severe protein-calorie malnutrition; C56.9 Malignant neoplasm of unspecified ovary; R64 Cachexia; C79.9 Secondary malignant neoplasm of unspecified site; E87.6 Hypokalemia; N28.9 Disorder of kidney and ureter, unspecified; Z68.21 Body mass index [BMI] 21.0-21.9, adult; E86.9 Volume depletion, unspecified; E86.1 Hypovolemia; Z88.5 Allergy status to narcotic agent
CPT/HCPCS: 36415; 80053; 82040; 82962; 83735; 84100; 84478; 85025; 87081; 96360; 96361; 96374; 96375; G0463; J1642; J1815; J2405; J3480; J3490; J7131

== ENCOUNTER → 2018-03-23 | Outpatient (CLI) | payer MEDICARE, BC ==
[~2018-03-23] MED LIST changes: +cefTRIAXone 1GM/50ML D5W 50 ML IV ONE; +cefTRIAXone SOD 1,000 MG VL ONE
[2018-03-23 13:35] VITALS: BP 109/75
[2018-03-23 14:05] VITALS: BP 111/82
[2018-03-23 16:33] LABS: Urine Bacteria NONE SEEN /hpf (None Seen); Urine Blood 1+ /uL (Negative); Urine Specific Gravity 1.018 (1.001-1.035); Urine WBC 2032 /hpf (0 - 5); Urine WBC Clumps PRESENT /hpf (None Seen)
== END | disposition home or self-care (01) ==
LOC: LAB 12:54
PROVIDERS: ATTEND Internal Medicine Cardiovascular Disease
DX: N39.0 Urinary tract infection, site not specified (principal); C79.60 Secondary malignant neoplasm of unspecified ovary; N17.9 Acute kidney failure, unspecified; I25.10 Atherosclerotic heart disease of native coronary artery without angina pectoris; E87.6 Hypokalemia; D64.9 Anemia, unspecified; E86.0 Dehydration; E87.1 Hypo-osmolality and hyponatremia; E43 Unspecified severe protein-calorie malnutrition; E83.40 Disorders of magnesium metabolism, unspecified; I10 Essential (primary) hypertension; E86.1 Hypovolemia; E87.0 Hyperosmolality and hypernatremia; K21.9 Gastro-esophageal reflux disease without esophagitis; E78.5 Hyperlipidemia, unspecified; Z68.22 Body mass index [BMI] 22.0-22.9, adult; Z79.899 Other long term (current) drug therapy; Z87.891 Personal history of nicotine dependence; Z85.038 Personal history of other malignant neoplasm of large intestine; Z85.89 Personal history of malignant neoplasm of other organs and systems
CPT/HCPCS: 81001; 87086; 87088; 87186; 96374; G0463; J0696; J1642